=== PATIENT | female | born 1965 | race Caucasian/White ===

== ENCOUNTER 2017-09-19 06:54 | Emergency (ER) | payer SELFPAY ==
--- NOTE | 2017-09-19 08:09 | ER Document Report ---
ED Extremity Problem, Upper - General Mode of Arrival: Ambulatory Information source: Patient TRAVEL OUTSIDE OF THE [place] IN LAST 30 DAYS: No <BIPIN VELA - Last Filed: 09/19/17 14:12> <KAMINI RILEY - Last Filed: 09/19/17 14:14> - General Chief Complaint: Shoulder Pain Stated Complaint: SHOULDER PAIN Time Seen by Provider: 09/19/17 07:46 Notes: 51 year old female that presents to the emergency department today with complaints of a "muscle spasm" to the left neck and upper back for the last week. Patients states she woke up with these symptoms 7 days ago and they have remained constant since onset. Patient states she has tried ibuprofen and a heat pad to relieve her symptoms which have been unsuccessful. Patient states her pain is not changed with movements. Patient states she has had no chest pain or shortness of breath. (BIPIN VELA) Past Medical History - General Information source: Patient - Social History Smoking Status: Current Every Day Smoker Cigarette use (# per day): Yes Chew tobacco use (# tins/day): No Frequency of alcohol use: None Drug Abuse: None Lives with: Family Family History: Reviewed & Not Pertinent Patient has suicidal ideation: No Patient has homicidal ideation: No Renal/ Medical History: Denies: Hx Peritoneal Dialysis Past Surgical History: Reports: Hx Breast Surgery <BIPIN VELA - Last Filed: 09/19/17 14:12> Review of Systems - Review of Systems Constitutional: No symptoms reported EENT: No symptoms reported Cardiovascular: denies: Chest pain Respiratory: denies: Short of breath Gastrointestinal: See HPI, Nausea Genitourinary: No symptoms reported Female Genitourinary: No symptoms reported Musculoskeletal: See HPI, Back pain - left, Neck pain - left Skin: No symptoms reported Hematologic/Lymphatic: No symptoms reported Neurological/Psychological: No symptoms reported -: Yes All other systems reviewed and negative <BIPIN VELA - Last Filed: 09/19/17 14:12> Physical Exam <BIPIN VELA - Last Filed: 09/19/17 14:12> <KAMINI RILEY - Last Filed: 09/19/17 14:14> - Vital signs Vitals: Temp Pulse Resp BP Pulse Ox 97.9 F 73 16 134/74 H 96 09/19/17 06:55 09/19/17 06:55 09/19/17 06:55 09/19/17 06:55 09/19/17 06:55 - Notes Notes: PHYSICAL EXAM GENERAL: Alert, interacts well. No acute distress. HEAD: Normocephalic, atraumatic. EYES: Pupils equal, round, and reactive to light. Extraocular movements intact. ENT: Oral mucosa moist, tongue midline. NECK: Full range of motion. Supple. Trachea midline. LUNGS: Clear to auscultation bilaterally, no wheezes, rales, or rhonchi. No respiratory distress. HEART: Regular rate and rhythm. No murmurs, gallops, or rubs. ABDOMEN: Soft, non-tender. Non-distended. Bowel sounds present in all 4 quadrants. No guarding, rigidity, or rebound. EXTREMITIES: Moves all 4 extremities spontaneously. No edema, radial and dorsalis pedis pulses 2/4 bilaterally. No cyanosis. Non-tender bony prominence proximal to the glenohumeral joint. Left scapula is more prominent than the right posteriorly. NEUROLOGICAL: Alert and oriented x3. Normal speech. PSYCH: Normal affect, normal mood. SKIN: Warm, dry, normal turgor. No rashes or lesions noted. (BIPIN VELA) Course - Laboratory Result Diagrams: 09/19/17 08:30 09/19/17 08:30 <BIPIN VELA - Last Filed: 09/19/17 14:12> - Laboratory Result Diagrams: 09/19/17 08:30 09/19/17 08:30 <KAMINI RILEY - Last Filed: 09/19/17 14:14> - Re-evaluation Re-evalutation: 09/19/17 09:59 CBC shows slight leukocytosis 10.7, CMP grossly unremarkable, cardiac enzymes negative for the shoulder pain that has been going on for over 1 week. Shoulder x-ray shows no acute fracture dislocation but there is a separate calcific density that is identified at the level of the AC joint presumably related to previous trauma. Chest x-ray shows no acute process. EKG is nonischemic. Patient is actually able to recall the last time she injured her left shoulder, states that several years ago she was carrying buckets and then felt a pop and sudden pain in her left shoulder, this is likely what explains the old fracture that is well-healed on her left shoulder. Discussed with patient that I think she is very low risk for this pain being cardiac etiology it is more likely muscular in nature, patient will be prescribed Robaxin, given 1 day of [place] to help with the acute pain and recommended follow-up as an outpatient. I did also recommend that she follow- up should she develop increasing numbness in her left arm that radiates past her left shoulder because this could be cervical radiculopathy. (KAMINI RILEY) - Vital Signs Vital signs: Temp Pulse Resp BP Pulse Ox 97.7 F 63 16 141/84 H 96 09/19/17 10:22 09/19/17 10:22 09/19/17 10:22 09/19/17 10:22 09/19/17 10:22 - Laboratory Laboratory results interpreted by me: 09/19/17 09/19/17 08:30 08:30 WBC 10.7 H Sodium 147.2 H Chloride 109 H Glucose 72 L - EKG Interpretation by Me Additional EKG results interpreted by me: 09/19/17 10:01 EKG shows sinus rhythm at a rate of 67, no ST segment elevations or depressions , no T wave inversions, normal axis, normal intervals per my interpretation. ( KAMINI RILEY) Discharge <BIPIN VELA - Last Filed: 09/19/17 14:12> <KAMINI RILEY - Last Filed: 09/19/17 14:14> - Discharge Clinical Impression: Neck pain on left side Left shoulder pain Qualifiers: Chronicity: acute Qualified Code(s): M25.512 - Pain in left shoulder Condition: Stable Disposition: HOME, SELF-CARE Additional Instructions: I suspect your left neck and shoulder pain is coming from a muscle spasm, likely a spasm of your left trapezius muscle. I have prescribed Robaxin to help with this. Robaxin can make you sleepy so do not drive while taking it. I have also prescribed 6 [place] to help with the acute pain over the next 24-48 hours while the muscle relaxers kick in. Please use ibuprofen (Motrin or Advil) 600-800 mg every 8 hours as needed for pain or fever. You may also use acetaminophen (Tylenol) 1000 mg every 4-6 hours as needed for pain or fever. Please be aware that many medications contain acetaminophen, do not exceed a total of 1000 mg of acetaminophen every 6 hours. Your x-ray did show a healed fracture of your left acromium. This is a bone in your shoulder that is connected to/part of your scapula. Prescriptions: Hydrocodone/Acetaminophen [[place] 5-325 mg Tablet] 1 tab PO Q4HP PRN #6 tablet PRN Reason: For Breakthrough Pain Methocarbamol [Robaxin 750 mg Tablet] 750 mg PO ASDIR PRN #40 tablet PRN Reason: Scribe Attestation: 09/19/17 14:14 I personally performed the services described in the documentation, reviewed and edited the documentation which was dictated to the scribe in my presence, and it accurately records my words and actions. (KAMINI RILEY) Scribe Documentation - Scribe Written by Devorah:: Devorah Champion, 09/19/2017 1345 acting as scribe for :: Ángela <BIPIN VELA - Last Filed: 09/19/17 14:12>
--- NOTE | 2017-09-19 08:30 | RADIOLOGY REPORT (SQ) ---
EXAM DESCRIPTION: SHOULDER LEFT 2 OR MORE VIEWS COMPLETED DATE/TIME: 09/19/2017 8:21 am REASON FOR STUDY: left shoulder pain, ?AC separation COMPARISON: None. NUMBER OF VIEWS: Three views. TECHNIQUE: Internal rotation, external rotation, and Y view images acquired of the left shoulder. LIMITATIONS: None. FINDINGS: MINERALIZATION: Normal. BONES: No acute fracture or dislocation. No worrisome bone lesions. JOINTS: A separate calcific density is identified at the level of the AC joint presumably related to previous trauma or could represent degenerative changes. VISUALIZED LUNGS AND RIBS: No pneumothorax. No rib fracture. SOFT TISSUES: No radiopaque foreign body. OTHER: No other significant finding. IMPRESSION: No acute fracture or dislocation. A separate calcific density is identified at the leve l of the AC joint presumably related to previous trauma or could represent degenerative changes. Ot er findings as noted above TECHNICAL DOCUMENTATION: JOB ID: [id number] [employer]- All Rights Reserved Reading location - IP/workstation name: [email or web address]
--- NOTE | 2017-09-19 08:31 | RADIOLOGY REPORT (SQ) ---
EXAM DESCRIPTION: CHEST 2 VIEWS COMPLETED DATE/TIME: 09/19/2017 8:21 am REASON FOR STUDY: left shoulder pain COMPARISON: None. EXAM PARAMETERS: NUMBER OF VIEWS: two views TECHNIQUE: Digital Frontal and Lateral radiographic views of the chest acquired. RADIATION DOSE: NA LIMITATIONS: none FINDINGS: LUNGS AND PLEURA: No opacities, masses or pneumothorax. No pleural effusion. MEDIASTINUM AND HILAR STRUCTURES: No masses or contour abnormalities. HEART AND VASCULAR STRUCTURES: Heart normal size. No evidence for failure. BONES: No acute findings. HARDWARE: None in the chest. OTHER: No other significant finding. IMPRESSION: NO ACUTE RADIOGRAPHIC FINDING IN THE CHEST. TECHNICAL DOCUMENTATION: JOB ID: [id number] [employer]- All Rights Reserved Reading location - IP/workstation name: [email or web address]
[2017-09-19 08:52] LABS: ABSOLUTE BASOPHILS # (AUTO) 0.1 10^3/uL (0.0-0.2); ABSOLUTE EOSINOPHILS # (AUTO) 0.3 10^3/uL (0.0-0.6); ABSOLUTE LYMPHOCYTES (AUTO) 2.9 10^3/uL (0.5-4.7); ABSOLUTE MONOCYTES (AUTO) 0.6 10^3/uL (0.1-1.4); ABSOLUTE NEUT (AUTO) 6.9 10^3/uL (1.7-8.2); BASOPHILS % (AUTO) 0.5 % (0-2); EOSINOPHILS % (AUTO) 2.6 % (0-6); HEMATOCRIT 41.1 % (36.0-47.0); HEMOGLOBIN 14.2 g/dL (12.0-15.5); MEAN CORPUSCULAR HEMOGLOBIN 32.1 pg (27.0-33.4); MEAN CORPUSCULAR HGB CONC 34.5 g/dL (32.0-36.0); MEAN CORPUSCULAR VOLUME 93 fl (80-97); MONOCYTES % (AUTO) 5.3 % (3-13); PLATELET COUNT 267 10^3/uL (150-450); RED BLOOD COUNT 4.42 10^6/uL (3.72-5.28); RED CELL DISTRIBUTION WIDTH 12.5 % (11.5-14.0); SEGMENTED NEUTROPHILS % (AUTO) 64.6 % (42-78); TOTAL CELLS COUNTED % (AUTO) 100 %; WHITE BLOOD COUNT 10.7 10^3/uL (4.0-10.5)
[2017-09-19 09:15] LABS: ALANINE AMINOTRANSFERASE 32 U/L (9-52); ALBUMIN 4.8 g/dL (3.5-5.0); ALKALINE PHOSPHATASE 74 U/L (38-126); ANION GAP 13 (5-19); ASPARTATE AMINO TRANSFERASE 25 U/L (14-36); BILIRUBIN,DIRECT 0.3 mg/dL (0.0-0.4); BILIRUBIN,TOTAL 0.4 mg/dL (0.2-1.3); BLOOD UREA NITROGEN 9 mg/dL (7-20); CALCIUM 9.8 mg/dL (8.4-10.2); CARBON DIOXIDE 25 mmol/L (22-30); CHLORIDE 109 mmol/L (98-107); GLUCOSE 72 mg/dL (75-110); POTASSIUM 4.7 mmol/L (3.6-5.0); SODIUM 147.2 mmol/L (137-145)
[2017-09-19 10:24] VITALS: BP 141/84
--- NOTE | 2017-09-19 19:45 | EKG REPORT ---
SEVERITY:- NORMAL ECG - SINUS RHYTHM : Confirmed by: Peg Carl MD 19-Sep-2017 19:44:48
== END 2017-09-19 10:23 | disposition home or self-care (01) ==
LOC: ER 06:54
DX: M54.2 Cervicalgia (principal); M25.512 Pain in left shoulder; M62.830 Muscle spasm of back; F17.210 Nicotine dependence, cigarettes, uncomplicated
CPT/HCPCS: 36415; 71046; 80053; 84484; 85025; 93005; 93010; 99284